=== PATIENT | female | born 1955 | race Two or more races ===

== ENCOUNTER 2024-04-07 16:07 | Emergency (ER) | payer MEDICARE, MEDICAID ==
[~2024-04-07] VITALS: Ht 154.9 cm; Wt 77.0 kg
[~2024-04-07 16:07] MED LIST: ASPI-325 PO; ATOR40TA52 PO; CARV12.544 PO; DOCU-265 PO; FEXO-131 PO; GAB100C PO; NEBI10TA13 PO; OMEP1CAP70 PO; VALS320T32 PO
[2024-04-07 21:13] VITALS: BP 148/84; PULSE 69; RESP 18; TEMP 98.4; O2SAT 98
--- NOTE | 2024-04-07 21:34 | ED.PDOC ---
History of Present Illness(SKN HPI Comments 68-year-old female presents to ER with complaints of abscess to back x 1.5 months. Patient reports that she has had an abscess localized to her mid back x 1.5 months. Notes that she was sent from her PCP to have the abscess drained in ER today and notes that she has had a similar abscess in this area in the past. Reports 10/10 pain localized to abscess on back. Denies use of medications for current symptoms. Patient presents to ER ambulatory on arrival, with steady gait, in no distress. Denies fever, body aches, chills, skin drainage or any further symptoms/complaints Chief Complaint: Abscess Time Seen by MD: 18:08 Primary Care Provider: MEAGHAN History of Present Illness: Nurses Notes, Medications, Allergies Allergies: Coded Allergies: NO KNOWN ALLERGIES (Unverified , 06/09/23) Home Meds Active Scripts Acetaminophen W/ Codeine (Tylenol W/Cod #3) 1 Tab Tb, 1 TAB PO Q6HPRN, #10 TAB 0 Refills Prov:JENSEN KIRK 04/07/24 Sulfamethoxazole W/Trimethopri (Bactrim Ds Tablet) 1 Tab Tb, 1 TAB PO BID for 7 Days, #14 TAB 0 Refills Prov:JENSEN KIRK 04/07/24 Reported Medications Fexofenadine HCl (Fexofenadine Hydrochlorid) 180 Mg Tab, 1 TAB PO DAILY 06/10/23 Valsartan-Hydrochlorothiazide (VALSARTAN/HYDROCHLOROTHIA) 1 Tab Tab, 1 TAB PO DAILY 06/10/23 Carvedilol (Carvedilol) 12.5 Mg Tab, 1 TAB PO BID 06/10/23 Nebivolol HCl (Nebivolol Hydrochloride) 10 Mg Tab, 1 TAB PO DAILY 06/10/23 Atorvastatin Calcium (ATORVASTATIN CALCIUM) 40 Mg Tab, 1 TAB PO DAILY 06/10/23 Omeprazole (Omeprazole Dr) 20 Mg Cap, 1 CAP PO DAILY 06/10/23 Aspirin (Aspirin Low Dose) 81 Mg Tab, 1 TAB PO DAILY 06/10/23 Docusate Sodium (Docusate Sodium) 100 Mg Cap, 100 MG PO DAILYP, CAP 06/10/23 Gabapentin (Gabapentin) 100 Mg Cap, 1 CAP PO DAILY 06/10/23 Information Source: Patient Mode of Arrival: Ambulatory Past Medical History PAST MEDICAL HISTORY: HTN, [place] Surgical History: Appendectomy, Cholecystectomy, [employer]ER [employer] MOUNTED History: 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[employer] History Family History Family History: Family hx of heart mindy, Family hx of HTN Social History Smoker: Non-Smoker Alcohol: Denies ETOH Use Drugs: Denies Drug Use Lives In: Home Constitutional: denies: chills, diaphoresis, fatigue, fever, malaise, sweats, weakness, others EENTM: denies: blurred vision, double vision, ear bleeding, ear discharge, ear drainage, ear pain, ear ringing, eye pain, eye redness, hearing loss, mouth pain, mouth swelling, nasal discharge, nose bleeding, nose congestion, nose pain, photophobia, tearing, throat pain, throat swelling, voice changes, others Respiratory: denies: cough, hemoptysis, orthopnea, SOB at rest, shortness of breath, SOB with excertion, stridor, wheezing, others Cardiovascular: denies: chest pain, dizzy spells, diaphoresis, Dyspnea on exertion, edema, irregular heart beat, left arm pain, lightheadedness, palpitations, PND, syncope, others Gastrointestinal: denies: abdomen distended, abdominal pain, blood streaked bowels, constipated, diarrhea, dysphagia, difficulty swallowing, hematemesis, melena, nausea, poor appetite, poor fluid intake, rectal bleeding, rectal pain, vomiting, others Genitourinary: denies: abnormal vagina bleeding, burning, dyspareunia, dysuria, flank pain, frequency, hematuria, incontinence, pain, , vagina discharge, urgency, others Neurological: denies: dizziness, fainting, headache, left sided numbness, left sided weakness, numbness, paresthesia, pre-existing deficit, right sided numbness, right sided weakness, seizure, speech problems, tingling, tremors, weakness, others Musculoskeletal: denies: back pain, gout, joint pain, joint swelling, muscle pain, muscle stiffness, neck pain, others Integumetry: reports: others ( STATED IN HPI) Allergic/Immunocompromised: denies: Difficulty Healing, Frequent Infections, Hives, Itching, others Hematologic/Lymphatic: denies: anemia, blood clots, easy bleeding, easy bruising, swollen glands, others Endocrine: denies: excessive hunger, excessive sweating, excessive thirst, excessive urination, flushing, intolerance to cold, intolerance to heat, unexplained weight gain, unexplained weight loss, others Psychiatric: denies: anxiety, bipolar disorder, depression, hopeless, panic disorder, schizophrenia, sleepless, suicidal, others Physical Exam General Appearance: No Apparent Distress HEENT: PERRL/EOMI Neck: Full Range of Motion, Non-Tender, Normal Respiratory: Chest Non-Tender, Lungs Clear, No Accessory Muscle Use, No Respiratory Distress, Normal Breath Sounds Cardiovascular: No Murmur, No Gallop, Regular Rate/Rhythm Breast Exam: Deferred Gastrointestinal: No Organomegaly, Non Tender, No Pulsatile Mass, Normal Bowel Sounds, Soft Genitalia: Deferred Pelvic: Deferred Rectal: Deferred Extremities: Normal capillary refill, Normal range of motion Neurologic: Alert, information architect II-XII nml as Tested, No Motor Deficits, Normal Affect, Normal Mood, No Sensory Deficits Cerebellar Function: Normal Reflexes: Normal Skin: Dry, Warm Peripheral Pulses: 2+ dorsalis pedis (R), 2+ dorsalis pedis (L) Lymphatic: No Adenopathy Was a procedure done? Was a procedure done?: Yes Sedation Sedation?: No Informed consent obtained: Yes Incision and Drainage Incision and Drainage: Abscess Location BACK Anesthetic: Lidocaine (1%) Preparation: Betadine, Saline Incision and Wound: Pus (LARGE AMOUNT), Blood, Other (TEN BLADE SCALPEL WAS USED TO MAKE THE INCISION, HEMOSTAT WAS USED TO BREAK UP THE LOCULATIONS. PATIENT TOLERATED WELL WITHOUT COMPLICATION), Irrigated, Packed Informed consent obtained: Yes Risks/benefits/alt described: Yes Images 1 - 3 CM X 3 CM ABSCESS TO BACK NOTED. NO DRAINAGE NOTED Differential Diagnosis (INTG) Differential Diagnosis: Abrasion Differential Diagnosis: Cellulitis, Puncture Wound X-Ray, Labs, Meds, VS Vital Signs Date Time Temp Pulse Resp B/P (MAP) Pulse Ox O2 Delivery O2 Flow Rate FiO2 04/07/24 21:13 69 98 Room Air* 0 21 04/07/24 21:13 98.4 69 18 148/84 (105) 98 98.4 04/07/24 16:35 99.0 71 19 157/92 (113) 98 Current Medications Medications (Trade) Dose Ordered Sig/Pablo Route Start Time Stop Time Status Last Admin Acetaminophen/ Hydrocodone Bitart ([place] 10/325MG Tab) 1 tab ONCE ONCE PO 04/07/24 21:15 04/07/24 21:16 DC 04/07/24 21:55 Ondansetron HCl (Zofran Po) 4 mg ONCE ONCE PO 04/07/24 21:15 04/07/24 21:16 DC 04/07/24 21:54 Ceftriaxone Sodium (Rocephin) 1,000 mg ONCE ONCE IM 04/07/24 21:15 04/07/24 21:16 DC 04/07/24 21:55 Lidocaine HCl (Xylocaine 1%) ONCE ONCE ID 04/07/24 22:30 04/07/24 22:31 DC 04/07/24 22:44 ROCEPHIN 1 G IM ORDERED NORCO 10/325 MG P.O. ORDERED ZOFRAN 4 MG P.O. ORDERED WOUND CARE/CLEANING DISCUSSED AND ADVISED PATIENT HAD IMPROVEMENT IN SYMPTOMS AND DENIED ANY PAIN PRIOR TO DISCHARGE ADVISED TO FOLLOW UP IN TWO DAYS FOR WOUND CHECK/ REPACKING ADVISED TO FOLLOW UP WITH PCP IN 1-2 DAYS PATIENT VERBALIZED UNDERSTANDING AND AGREEABLE WITH CURRENT PLAN OF CARE ADVISED TO RETURN TO ER IMMEDIATELY IF SYMPTOMS WORSEN Time of 1ST Reevaluation: 21:32 Reevaluation 1ST: N/A Patient Education/Counseling: Diagnosis, Treatment, Prognosis, Need For Follow Up Family Education/Counseling: No Family Present Departure 1 Departure Time of Disposition: 23:12 Impression: Primary Impression: Abscess of back Disposition: 01 HOME / SELF CARE / HOMELESS Condition: Stable e-Prescriptions Acetaminophen W/ Codeine (Tylenol W/Cod #3) 1 Tab Tb 1 TAB PO Q6HPRN, #10 TAB 0 Refills Prov: JENSEN KIRK 04/07/24 Sulfamethoxazole W/Trimethopri (Bactrim Ds Tablet) 1 Tab Tb 1 TAB PO BID for 7 Days, #14 TAB 0 Refills Prov: JENSEN KIRK 04/07/24 Discharged With: Self Critical Care Note Critical Care Time?: No Stability Stability form required: No Heart Score Heart Score: Heart Score Response (Comments) Value History N/A 0 EKG N/A 0 Age N/A 0 Risk Factors N/A 0 Troponin N/A 0 Total 0 JENSEN KIRK Apr 07, 2024 21:34
[2024-04-07] MEDS: ONDANSETRON ODT 4 MG TAB PO ONE (21:54)
[2024-04-07] MEDS: cefTRIAXone SOD 1,000 MG VL IM ONE (21:55)
[2024-04-07] MEDS: HYDROcodone-ACET 10/325MG TAB PO ONE (21:55)
[2024-04-07] MEDS: LIDOCAINE 1% HCL (LOCAL ANESTH.) INJ 20ML MDV ID ONE (22:44)
[2024-04-07] MEDS ORDERED: ACE3T PO (23:15)
[2024-04-07] MEDS ORDERED: BACDST PO (23:15)
== END 2024-04-07 23:38 | disposition home or self-care (01) ==
LOC: ER 16:18
DX: L02.212 Cutaneous abscess of back [any part, except buttock and flank] (principal); I10 Essential (primary) hypertension; Z79.899 Other long term (current) drug therapy; Z79.84 Long term (current) use of oral hypoglycemic drugs; Z90.49 Acquired absence of other specified parts of digestive tract; Z90.89 Acquired absence of other organs; Z98.890 Other specified postprocedural states
CPT/HCPCS: 10061; 96372; 99284; J0696; J2003; Q0162

== ENCOUNTER 2024-04-12 12:01 | Emergency (ER) | payer MEDICARE, MEDICAID ==
[~2024-04-12] VITALS: Ht 152.4 cm; Wt 77.3 kg
[~2024-04-12 12:01] MED LIST changes: +ACE3T PO; +BACDST PO
[2024-04-12 14:00] VITALS: BP 115/70; PULSE 62; RESP 12; TEMP 98.8; O2SAT 98
--- NOTE | 2024-04-12 14:16 | ED.PDOC ---
History of Present Illness HPI Comments 68-year-old presents for wound check. Previously had an I&D. No complaints or concerns Chief Complaint: Wound Check Time Seen by MD: 13:56 Primary Care Provider: MEAGHAN Reviewed Notes: Nurses Notes, Medications, Allergies Allergies: Coded Allergies: NO KNOWN ALLERGIES (Unverified , 06/09/23) Home Meds Active Scripts Acetaminophen W/ Codeine (Tylenol W/Cod #3) 1 Tab Tb, 1 TAB PO Q6HPRN, #10 TAB 0 Refills Prov:JENSEN KIRK 04/07/24 Sulfamethoxazole W/Trimethopri (Bactrim Ds Tablet) 1 Tab Tb, 1 TAB PO BID for 7 Days, #14 TAB 0 Refills Prov:JENSEN KIRK 04/07/24 Reported Medications Fexofenadine HCl (Fexofenadine Hydrochlorid) 180 Mg Tab, 1 TAB PO DAILY 06/10/23 Valsartan-Hydrochlorothiazide (VALSARTAN/HYDROCHLOROTHIA) 1 Tab Tab, 1 TAB PO DAILY 06/10/23 Carvedilol (Carvedilol) 12.5 Mg Tab, 1 TAB PO BID 06/10/23 Nebivolol HCl (Nebivolol Hydrochloride) 10 Mg Tab, 1 TAB PO DAILY 06/10/23 Atorvastatin Calcium (ATORVASTATIN CALCIUM) 40 Mg Tab, 1 TAB PO DAILY 06/10/23 Omeprazole (Omeprazole Dr) 20 Mg Cap, 1 CAP PO DAILY 06/10/23 Aspirin (Aspirin Low Dose) 81 Mg Tab, 1 TAB PO DAILY 06/10/23 Docusate Sodium (Docusate Sodium) 100 Mg Cap, 100 MG PO DAILYP, CAP 06/10/23 Gabapentin (Gabapentin) 100 Mg Cap, 1 CAP PO DAILY 06/10/23 Information Source: Patient Mode of Arrival: Ambulatory Past Medical History PAST MEDICAL HISTORY: HTN, [place] Surgical History: Appendectomy, Cholecystectomy, 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 History Family History Family History: Family hx of heart mindy, Family hx of HTN Social History Smoker: Non-Smoker Alcohol: Denies ETOH Use Drugs: Denies Drug Use Lives In: Home All Other Systems: Reviewed and Negative (Per HPI) Physical Exam General Appearance: No Apparent Distress, Normal HEENT: Normal ENT Inspection, Pharynx Normal, TMs Normal Neck: Full Range of Motion, Non-Tender, Normal, Normal Inspection Respiratory: Chest Non-Tender, Lungs Clear, No Accessory Muscle Use, No Respiratory Distress, Normal Breath Sounds Cardiovascular: No Edema, No JVD, No Murmur, No Gallop, Normal Peripheral Pulses, Regular Rate/Rhythm Breast Exam: Deferred Gastrointestinal: No Organomegaly, Non Tender, No Pulsatile Mass, Normal Bowel Sounds, Soft Genitalia: Deferred Pelvic: Deferred Rectal: Deferred Extremities: No calf tenderness, Normal capillary refill, Normal inspection, Normal range of motion, Non-tender, No pedal edema Musculoskeletal : Apperance: Normal Neurologic: Alert, java developer II-XII nml as Tested, No Motor Deficits, Normal Affect, Normal Mood, No Sensory Deficits Cerebellar Function: Normal Reflexes: Normal Skin: Dry, Normal Color, Warm Lymphatic: No Adenopathy Was a procedure done? Was a procedure done?: No Differential Dx Considerations may include: wound check X-Ray, Labs, Meds, VS Vital Signs Date Time Temp Pulse Resp B/P (MAP) Pulse Ox O2 Delivery O2 Flow Rate FiO2 04/12/24 14:00 62 12 98 Room Air* 0 21 04/12/24 14:00 98.8 62 12 115/70 (85) 98 98.8 04/12/24 12:15 98.8 60 20 115/58 (77) 98 X-Ray, Labs, Meds, VS Comment Patient was rechecked for abscess and had been previously incised and drained with packing placed. Examination shows no evidence of cellulitis, lymphangitis, systemic infection or any other process requiring immediate medical or surgical intervention at this time. The packing was removed and bandages were changed. Return in 2 days for wound check Time of 1ST Reevaluation: 14:00 Reevaluation 1ST: Improved Patient Education/Counseling: Diagnosis, Treatment Family Education/Counseling: Diagnosis, Treatment Departure 1 Departure Time of Disposition: 14:15 Impression: Primary Impression: Wound check, abscess Disposition: HOME / SELF CARE / HOMELESS Condition: Fair Critical Care Note Critical Care Time?: No Stability Stability form required: No Heart Score Heart Score: Heart Score Response (Comments) Value History N/A 0 EKG N/A 0 Age N/A 0 Risk Factors N/A 0 Troponin N/A 0 Total 0 WILBUR SCHREIBER NP Apr 12, 2024 14:16
== END 2024-04-12 14:52 | disposition home or self-care (01) ==
LOC: ER 12:01
DX: Z48.01 Encounter for change or removal of surgical wound dressing (principal); I10 Essential (primary) hypertension; I25.2 Old myocardial infarction; Z90.49 Acquired absence of other specified parts of digestive tract; Z98.890 Other specified postprocedural states

== ENCOUNTER → 2024-07-15 | Outpatient (CLI) | payer OTHER, MEDICAID ==
[2024-07-15 11:16] LABS: Basophils # (auto) 0.1 10 ^3/uL (0-0.2); Eosinophils # (auto) 0.3 10 ^3/uL (0-0.8); Eosinophils % (auto) 4.2 % (0.0-7.0); Hemoglobin 8.9 g/dL (12.2-16.2); Monocytes # (auto) 0.4 10 ^3/uL (0-1.3)
[2024-07-15 11:18] LABS: Basophils % (auto) 0.9 % (0.0-2.0); Hematocrit 29.2 % (36.0-46.0); Lymphocytes % (auto) 31.4 % (10.0-50.0); Mean Corpuscular Hemoglobin 17.8 pg (28.0-32.0); Mean Corpuscular Hgb Conc. 30.4 g/dL (32.0-36.0); Mean Corpuscular Volume 58.6 fL (80.0-100.0); Monocytes % (auto) 6.1 % (0.0-12.0); Neutrophils # (auto) 3.7 10 ^3/uL (1.6-8.6); Neutrophils % (auto) 57.4 % (37.0-80.0); Platelet Count (auto) 341 10^3/uL (140-450); Red Blood Cells 4.99 10^6/uL (4.0-5.20); White Blood Cell 6.4 10^3/uL (4.4-10.8)
[2024-07-15 11:20] LABS: Red Cell Distribution Width 20.8 % (11.8-14.3)
[2024-07-15 11:29] LABS: Creatinine, Urine 148.35 mg/dL (30.0-125.0)
[2024-07-15 11:32] LABS: Albumin 4.5 g/dL (3.2-4.8); Anion Gap 8 (5-15); BUN/Creatinine Ratio 18.3 (10.0-20.0); Bilirubin, Total 0.6 mg/dL (0.2-1.0); Blood Urea Nitrogen 17 mg/dL (9-23); Calcium 9.5 mg/dL (8.7-10.4); Carbon Dioxide 24 mmol/L (20-31); Cholesterol 134 mg/dL (< 200); LDL Cholesterol 80 mg/dL (< 100); Potassium 3.9 mmol/L (3.5-5.1); Sodium 143 mmol/L (136-145); Total Protein 7.5 g/dL (5.7-8.2); Triglycerides 117 mg/dL (< 150)
[2024-07-15 11:33] LABS: Alanine Aminotransferase 60 U/L (7-40); Alkaline Phosphatase 156 U/L (46-116); Aspartate Aminotransferase 55 U/L (13-40); Chloride 111 mmol/L (98-107); Glucose 107 mg/dL (74-106); HDL Cholesterol 36 mg/dL (40-59)
== END | disposition home or self-care (01) ==
LOC: LAB 10:48
PROVIDERS: ATTEND Internal Medicine
DX: D64.9 Anemia, unspecified (principal); R73.03 Prediabetes; R74.01 Elevation of levels of liver transaminase levels
CPT/HCPCS: 36415; 80053; 80061; 82043; 82306; 82570; 83036; 84443; 85025

== ENCOUNTER → 2024-07-19 | Outpatient (CLI) | payer OTHER, MEDICAID | END | disposition home or self-care (01) | LOC: LAB 13:18 | PROVIDERS: ATTEND Internal Medicine | DX: R73.03 Prediabetes (principal); D64.9 Anemia, unspecified; R74.01 Elevation of levels of liver transaminase levels; Z90.710 Acquired absence of both cervix and uterus; Z79.899 Other long term (current) drug therapy | CPT/HCPCS: 82270 ==